=== PATIENT | female | born 1970 | race Caucasian/White ===

== ENCOUNTER → 2024-01-14 14:13 | Outpatient (REF) | payer OTHER, SELFPAY | LOC: PAVMRI 14:13 | PROVIDERS: ATTENDING PHYSICIAN Orthopaedic Surgery; FAMILY PHYSICIAN Nurse Practitioner | DX: M25.562 Pain in left knee (principal) | CPT/HCPCS: 73721 ==

== ENCOUNTER → 2024-04-26 09:12 | Outpatient (REF) | payer OTHER, SELFPAY | LOC: PAVMRI 09:12 | PROVIDERS: ATTENDING PHYSICIAN Orthopaedic Surgery Hand Surgery; FAMILY PHYSICIAN Internal Medicine | DX: M25.511 Pain in right shoulder (principal) | CPT/HCPCS: 73221 ==

== ENCOUNTER → 2024-05-11 09:20 | Outpatient (REF) | payer OTHER, SELFPAY | LOC: PAVMRI 09:20 | PROVIDERS: ATTENDING PHYSICIAN Orthopaedic Surgery Hand Surgery | DX: M25.511 Pain in right shoulder (principal) | CPT/HCPCS: 73221 ==

== ENCOUNTER 2024-11-04 06:25 | Day surgery (SDC) | payer OTHER, SELFPAY | END 2024-11-04 16:05 | disposition home or self-care (01) | LOC: GI 06:25 | PROVIDERS: ATTENDING PHYSICIAN Internal Medicine Gastroenterology | DX: Z12.11 Encounter for screening for malignant neoplasm of colon (principal); K57.30 Diverticulosis of large intestine without perforation or abscess without bleeding | CPT/HCPCS: G0105 ==

== ENCOUNTER → 2025-01-28 17:54 | Outpatient (REF) | payer OTHER, SELFPAY | LOC: WDC 17:54 | DX: Z12.31 Encounter for screening mammogram for malignant neoplasm of breast (principal) | CPT/HCPCS: 77063; 77067 ==